=== PATIENT | female | born 1945 | race Caucasian/White ===

== ENCOUNTER 2021-09-12 13:58 | Inpatient (IN) | payer OTHER ==
[2021-09-12 18:08] LABS: BASO % 0.3 % (0-2.0); EOS % 0.5 % (0-4.5); HEMATOCRIT 45.3 % (32.4-45.2); HEMOGLOBIN 15.1 GM/dL (10.7-15.3); LYMPH % 10.3 % (8-40); MCH 29.9 pg (25.7-33.7); MCHC 33.3 g/dl (32.0-36.0); MEAN CELL VOLUME 89.7 fl (80-96); MONO % 10.2 % (3.8-10.2); NEUT % 78.7 % (42.8-82.8); PLATELET COUNT 196 10^3/uL (134-434); RBC 5.05 M/mm3 (3.60-5.2); RDW 13.6 % (11.6-15.6)
[2021-09-12 18:18] LABS: INR 1.22 (0.83-1.09); PROTHROMBIN TIME (PATIENT) 13.7 SEC (9.7-13.0)
[2021-09-12 18:21] LABS: ACTIVATED PTT 26.8 SECONDS (25.2-36.5)
[2021-09-12 18:31] LABS: CALCIUM 8.3 mg/dL (8.5-10.1)
[2021-09-12 18:32] LABS: ALBUMIN 2.3 g/dl (3.4-5.0); BLOOD UREA NITROGEN 32.1 mg/dL (7-18)
[2021-09-12 18:35] LABS: CREATININE 0.7 mg/dL (0.55-1.3)
[2021-09-12 18:37] LABS: BILIRUBIN,TOTAL 1.6 mg/dL (0.2-1); TOT PROT 5.6 g/dl (6.4-8.2)
[2021-09-12] MEDS ORDERED: SODIUM CHLORIDE 0.9% 500 ML INFUS.BAG IV ONE (21:35)
[2021-09-13 00:52] LABS: EPI CELLS 4 /uL (0-25.1); HYALINE CASTS 0 /uL (0-3.1); URINE APPEARANCE CLEAR; URINE BACTERIA 828 /uL (0-1359); URINE BILIRUBIN NEGATIVE (NEGATIVE); URINE COLOR YELLOW; URINE GLUCOSE (UA) NEGATIVE (NEGATIVE); URINE KETONE TRACE (NEGATIVE); URINE LEUK ESTERASE 1+ (NEGATIVE); URINE NITRITE NEGATIVE (NEGATIVE); URINE PROTEIN NEGATIVE (NEGATIVE); URINE RBC 5 /uL (0-23.9); URINE UROBILINOGEN 0.2 mg/dL (0.2-1.0); URINE WBC 119 /uL (0-25.8)
[2021-09-13] MEDS ORDERED: DEXAMETHASONE SOD PHOSPHATE 10 MG/1 ML VIAL IVPUSH ONE (00:53)
[2021-09-13] MEDS ORDERED: amLODIPine BESYLATE 2.5 MG TABLET (FP) PO ONE (00:59)
[2021-09-13] MEDS ORDERED: DEXAMETHASONE SOD PHOSPHATE 10 MG/1 ML VIAL ONE ×2 (01:22→09:15)
[2021-09-13 07:04] LABS: HEMATOCRIT 42.9 % (32.4-45.2); HEMOGLOBIN 14.6 GM/dL (10.7-15.3); MCH 30.5 pg (25.7-33.7); MCHC 34.1 g/dl (32.0-36.0); MEAN CELL VOLUME 89.3 fl (80-96); MEAN PLT VOLUME 8.7 fl (7.5-11.1); PLATELET COUNT 173 10^3/uL (134-434); RDW 13.5 % (11.6-15.6); WHITE BLOOD COUNT 7.2 K/mm3 (4.0-10.0)
[2021-09-13 07:31] LABS: CALCIUM 7.9 mg/dL (8.5-10.1)
[2021-09-13 07:32] LABS: ALBUMIN 2.2 g/dl (3.4-5.0); BLOOD UREA NITROGEN 27.6 mg/dL (7-18); MAGNESIUM 1.7 mg/dL (1.8-2.4)
[2021-09-13 07:35] LABS: CREATININE 0.9 mg/dL (0.55-1.3); PHOSPHOROUS 3.6 mg/dL (2.5-4.9)
[2021-09-13 07:36] LABS: BILIRUBIN,TOTAL 1.6 mg/dL (0.2-1); TOT PROT 5.4 g/dl (6.4-8.2)
[2021-09-13] MEDS ORDERED: CEFTRIAXONE 1 GM/50 ML BAG ONE (08:12)
[2021-09-13] MEDS ORDERED: CEFTRIAXONE 1 GM in DEXTROSE 5%-WATER - 50 ML IVPB ONE (09:00)
[2021-09-13] MEDS ORDERED: ENOXAPARIN NA (PORCINE) 40 MG/0.4 ML DISP.SYRIN SQ ONE (09:16)
[2021-09-13] MEDS: ENOXAPARIN NA (PORCINE) 40 MG/0.4 ML DISP.SYRIN SQ SCH (09:29)
[2021-09-13] MEDS: DEXAMETHASONE SOD PHOSPHATE 10 MG/1 ML VIAL IVPUSH SCH (09:30)
[2021-09-13] MEDS ORDERED: amLODIPine BESYLATE 5 MG TABLET (FP) ONE (09:40)
[2021-09-13 09:54] LABS: ANISOCYTOSIS 1+; MACROCYTOSIS 0; PLATELET ESTIMATE NORMAL
[2021-09-13] MEDS: amLODIPine BESYLATE 5 MG TABLET (FP) PO SCH (10:00)
[2021-09-13] MEDS ORDERED: REMDESIVIR 200 MG in SODIUM CHLORIDE 250 ML IVPB ONE (14:00)
[2021-09-13] MEDS ORDERED: ACETAMINOPHEN 325 MG TABLET (FP) PO PRN (18:12)
[2021-09-13 18:17] VITALS: BMI 20.5
[2021-09-14] MEDS: ENOXAPARIN NA (PORCINE) 40 MG/0.4 ML DISP.SYRIN SQ SCH (10:41)
[2021-09-14] MEDS: amLODIPine BESYLATE 5 MG TABLET (FP) PO SCH (10:41)
[2021-09-14] MEDS ORDERED: cefTRIAXone SODIUM 1 GM VIAL ONE (12:49)
[2021-09-14] MEDS ORDERED: DEXTROSE 5%-WATER - 50 ML IVPB ONE (12:49)
[2021-09-14] MEDS: DEXAMETHASONE SOD PHOSPHATE 10 MG/1 ML VIAL IVPUSH SCH (13:00)
[2021-09-14] MEDS: CEFTRIAXONE 1 GM in DEXTROSE 5%-WATER - 50 ML IVPB SCH (13:04)
[2021-09-14] MEDS: REMDESIVIR 100 MG in SODIUM CHLORIDE 250 ML IVPB SCH (13:42)
[2021-09-14] MEDS: AMINO ACIDS/PROTEIN HYDROLYS 30 ML LIQUID.PKT PO SCH (18:08)
[2021-09-15] MEDS ORDERED: cefTRIAXone SODIUM 1 GM VIAL ONE (09:11)
[2021-09-15] MEDS ORDERED: DEXTROSE 5%-WATER - 50 ML IVPB ONE (09:12)
[2021-09-15] MEDS: amLODIPine BESYLATE 5 MG TABLET (FP) PO SCH (09:19)
[2021-09-15] MEDS: MULTIVITAMINS THER W-MINERALS COMBO TABLET (FP) PO SCH (09:19)
[2021-09-15] MEDS: ENOXAPARIN NA (PORCINE) 40 MG/0.4 ML DISP.SYRIN SQ SCH (09:19)
[2021-09-15] MEDS: AMINO ACIDS/PROTEIN HYDROLYS 30 ML LIQUID.PKT PO SCH ×2 (09:20→17:52)
[2021-09-15] MEDS: CEFTRIAXONE 1 GM in DEXTROSE 5%-WATER - 50 ML IVPB SCH (09:20)
[2021-09-15] MEDS ORDERED: PT OWN MED DRAWER 7, Y5N ONE ×2 (09:22→15:27)
[2021-09-15] MEDS: ASCORBIC ACID 250 MG TABLET (FP) PO SCH (09:23)
[2021-09-15] MEDS: DEXAMETHASONE SOD PHOSPHATE 10 MG/1 ML VIAL IVPUSH SCH (09:23)
[2021-09-15] MEDS: REMDESIVIR 100 MG in SODIUM CHLORIDE 250 ML IVPB SCH (15:39)
[2021-09-16 07:09] LABS: BASO % 0.1 % (0-2.0); HEMATOCRIT 41.3 % (32.4-45.2); HEMOGLOBIN 13.5 GM/dL (10.7-15.3); MCH 29.8 pg (25.7-33.7); MCHC 32.6 g/dl (32.0-36.0); MEAN CELL VOLUME 91.2 fl (80-96); MEAN PLT VOLUME 9.4 fl (7.5-11.1); NEUT % 82.9 % (42.8-82.8); PLATELET COUNT 204 10^3/uL (134-434); RBC 4.53 M/mm3 (3.60-5.2); RDW 13.3 % (11.6-15.6)
[2021-09-16] MEDS ORDERED: cefTRIAXone SODIUM 1 GM VIAL ONE (08:12)
[2021-09-16] MEDS ORDERED: DEXTROSE 5%-WATER - 50 ML IVPB ONE (08:12)
[2021-09-16] MEDS: AMINO ACIDS/PROTEIN HYDROLYS 30 ML LIQUID.PKT PO SCH ×2 (08:58→16:57)
[2021-09-16] MEDS: CEFTRIAXONE 1 GM in DEXTROSE 5%-WATER - 50 ML IVPB SCH (09:09)
[2021-09-16] MEDS: amLODIPine BESYLATE 5 MG TABLET (FP) PO SCH ×2 (09:10→09:26)
[2021-09-16] MEDS: ENOXAPARIN NA (PORCINE) 40 MG/0.4 ML DISP.SYRIN SQ SCH (09:10)
[2021-09-16] MEDS: DEXAMETHASONE SOD PHOSPHATE 10 MG/1 ML VIAL IVPUSH SCH (09:10)
[2021-09-16] MEDS: MULTIVITAMINS THER W-MINERALS COMBO TABLET (FP) PO SCH ×2 (09:10→09:27)
[2021-09-16] MEDS: ASCORBIC ACID 250 MG TABLET (FP) PO SCH ×2 (09:10→09:27)
[2021-09-16] MEDS: REMDESIVIR 100 MG in SODIUM CHLORIDE 250 ML IVPB SCH (14:30)
[2021-09-16 17:21] LABS: CALCIUM 8.4 mg/dL (8.5-10.1)
[2021-09-16 17:22] LABS: ALBUMIN 2.6 g/dl (3.4-5.0); BLOOD UREA NITROGEN 25.2 mg/dL (7-18); MAGNESIUM 2.1 mg/dL (1.8-2.4)
[2021-09-16 17:25] LABS: CREATININE 0.7 mg/dL (0.55-1.3)
[2021-09-16 17:27] LABS: BILIRUBIN,TOTAL 0.8 mg/dL (0.2-1); TOT PROT 5.6 g/dl (6.4-8.2)
[2021-09-17] MEDS ORDERED: DEXTROSE 5%-WATER - 50 ML IVPB ONE (10:09)
[2021-09-17] MEDS ORDERED: cefTRIAXone SODIUM 1 GM VIAL ONE (10:09)
[2021-09-17] MEDS: ENOXAPARIN NA (PORCINE) 40 MG/0.4 ML DISP.SYRIN SQ SCH (12:56)
[2021-09-17] MEDS: DEXAMETHASONE SOD PHOSPHATE 10 MG/1 ML VIAL IVPUSH SCH (12:56)
[2021-09-17] MEDS: AMINO ACIDS/PROTEIN HYDROLYS 30 ML LIQUID.PKT PO SCH ×2 (12:56→18:15)
[2021-09-17] MEDS: amLODIPine BESYLATE 5 MG TABLET (FP) PO SCH (12:56)
[2021-09-17] MEDS: CEFTRIAXONE 1 GM in DEXTROSE 5%-WATER - 50 ML IVPB SCH (12:57)
[2021-09-17] MEDS: ASCORBIC ACID 250 MG TABLET (FP) PO SCH (12:57)
[2021-09-17] MEDS: MULTIVITAMINS THER W-MINERALS COMBO TABLET (FP) PO SCH (12:57)
[2021-09-17] MEDS: REMDESIVIR 100 MG in SODIUM CHLORIDE 250 ML IVPB SCH (15:30)
[2021-09-17 19:55] LABS: BASO % 0.2 % (0-2.0); HEMATOCRIT 44.9 % (32.4-45.2); HEMOGLOBIN 14.8 GM/dL (10.7-15.3); LYMPH % 6.5 % (8-40); MCH 29.7 pg (25.7-33.7); MEAN CELL VOLUME 89.9 fl (80-96); MEAN PLT VOLUME 9.2 fl (7.5-11.1); MONO % 2.5 % (3.8-10.2); NEUT % 90.8 % (42.8-82.8); PLATELET COUNT 215 10^3/uL (134-434); RDW 13.2 % (11.6-15.6); WHITE BLOOD COUNT 6.2 K/mm3 (4.0-10.0)
[2021-09-17 20:12] LABS: CALCIUM 7.9 mg/dL (8.5-10.1)
[2021-09-17 20:13] LABS: ALBUMIN 2.4 g/dl (3.4-5.0); BLOOD UREA NITROGEN 33.3 mg/dL (7-18)
[2021-09-17 20:16] LABS: CREATININE 1.1 mg/dL (0.55-1.3)
[2021-09-17 20:17] LABS: BILIRUBIN,TOTAL 0.7 mg/dL (0.2-1); TOT PROT 5.3 g/dl (6.4-8.2)
[2021-09-18 07:52] LABS: BASO % 0.2 % (0-2.0); HEMOGLOBIN 14.4 GM/dL (10.7-15.3); LYMPH % 6.4 % (8-40); MCHC 33.6 g/dl (32.0-36.0); MEAN CELL VOLUME 89.4 fl (80-96); MEAN PLT VOLUME 9.2 fl (7.5-11.1); MONO % 5.9 % (3.8-10.2); NEUT % 87.5 % (42.8-82.8); PLATELET COUNT 214 10^3/uL (134-434); RBC 4.81 M/mm3 (3.60-5.2); WHITE BLOOD COUNT 9.9 K/mm3 (4.0-10.0)
[2021-09-18 08:24] LABS: ALBUMIN 2.5 g/dl (3.4-5.0); BILIRUBIN,TOTAL 0.8 mg/dL (0.2-1); BLOOD UREA NITROGEN 36.4 mg/dL (7-18); CREATININE 0.8 mg/dL (0.55-1.3); MAGNESIUM 1.9 mg/dL (1.8-2.4); TOT PROT 5.2 g/dl (6.4-8.2)
[2021-09-18] MEDS ORDERED: cefTRIAXone SODIUM 1 GM VIAL ONE (10:03)
[2021-09-18] MEDS ORDERED: DEXTROSE 5%-WATER - 50 ML IVPB ONE (10:04)
[2021-09-18] MEDS: AMINO ACIDS/PROTEIN HYDROLYS 30 ML LIQUID.PKT PO SCH ×2 (10:18→17:12)
[2021-09-18] MEDS: ENOXAPARIN NA (PORCINE) 40 MG/0.4 ML DISP.SYRIN SQ SCH (10:18)
[2021-09-18] MEDS: amLODIPine BESYLATE 5 MG TABLET (FP) PO SCH (10:18)
[2021-09-18] MEDS: DEXAMETHASONE SOD PHOSPHATE 10 MG/1 ML VIAL IVPUSH SCH (10:18)
[2021-09-18] MEDS: ASCORBIC ACID 250 MG TABLET (FP) PO SCH (10:18)
[2021-09-18] MEDS: MULTIVITAMINS THER W-MINERALS COMBO TABLET (FP) PO SCH (10:18)
[2021-09-18] MEDS: CEFTRIAXONE 1 GM in DEXTROSE 5%-WATER - 50 ML IVPB SCH (10:19)
[2021-09-18 22:59] VITALS: BP 138/70; PULSE 72; TEMP 97.6
[2021-09-19] MEDS ORDERED: DEXAMETHASONE 4 MG TABLET (FP) PO SCH (10:00)
== END 2021-09-19 00:24 | DRG 177 ==
LOC: JER 13:58 → JERBED 17:43 → J5S 09-13 15:43 → J4W 09-16 00:57
PROVIDERS: ADMIT Internal Medicine; ATTEND Nurse Practitioner Family
PROC: XW033E5 Introduction of Remdesivir Anti-infective into Peripheral Vein, Percutaneous Approach, New Technology Group 5 (ICD-10-PCS; principal; 2021-09-13)
DX: U07.1 COVID-19 (principal); J12.82 Pneumonia due to coronavirus disease 2019; N17.9 Acute kidney failure, unspecified; M62.82 Rhabdomyolysis; R29.6 Repeated falls; I44.7 Left bundle-branch block, unspecified; R94.31 Abnormal electrocardiogram [ECG] [EKG]; J44.9 Chronic obstructive pulmonary disease, unspecified; R00.1 Bradycardia, unspecified; R94.5 Abnormal results of liver function studies; R09.02 Hypoxemia; R62.7 Adult failure to thrive; Z68.20 Body mass index [BMI] 20.0-20.9, adult
CPT/HCPCS: 36415; 70450-TC; 71045-TC-FY; 75635-TC; 80053; 80061; 81003; 82550; 82553; 82962; 83605; 83735; 84100; 84443; 84484; 85025; 85379; 85610; 85730; 86140; 87040; 87086; 87186; 93005; 93010; 93880-TC; 97116-GP; 97162-GP; 99285-25; C9399; C9803-CS; J1100; Q9967; U0003; U0005